=== PATIENT | female | born 1940 | race Caucasian/White ===

== ENCOUNTER 2022-03-29 15:11 | Outpatient (CLI) | payer OTHER, MEDICARE, SELFPAY | END 2022-03-29 15:12 | disposition home or self-care (01) | LOC: AMB 04-08 12:39 | PROVIDERS: PCP Family Medicine; Visit Provider Family Medicine | DX: S79.912A Unspecified injury of left hip, initial encounter (principal); W18.09XA Striking against other object with subsequent fall, initial encounter; Y92.128 Other place in nursing home as the place of occurrence of the external cause | CPT/HCPCS: A0425; A0427 ==

== ENCOUNTER 2022-03-29 15:42 | Inpatient (IN) | payer OTHER, MEDICARE, SELFPAY ==
[2022-03-29] VITALS (9 sets, daily range): BP systolic 125–191; BP diastolic 71–83; PULSE 82–91; RESP 16–20; TEMP 36.6–36.9; O2SAT 94–100; BMI 26.6
--- NOTE | 2022-03-29 15:46 | CRLHL7_ITS ---
For Patients: As a result of the Century Cures Act, medical imaging exams and procedure reports are released immediately into your electronic medical record. You may view this report before your referring provider. If you have questions, please contact your health care provider. Indication: Fall. Technique: Left hip 3 views. Comparison: 12/18/2017. Findings: Acute comminuted and displaced left proximal femur intertrochanteric fracture. Degenerative changes of the hip joints, sacroiliac joints, and lumbosacral junction. Partially imaged posterior lumbar fusion changes. Soft tissue swelling about the left femur fracture. Impression: Acute comminuted and displaced left proximal femur intertrochanteric fracture. Dictated by Francis Trejo MD @ 03/29/2022 5:01:30 PM (Electronically Signed)
--- NOTE | 2022-03-29 15:46 | CRLHL7_ITS ---
For Patients: As a result of the Century Cures Act, medical imaging exams and procedure reports are released immediately into your electronic medical record. You may view this report before your referring provider. If you have questions, please contact your health care provider. INDICATION: Fall. TECHNIQUE: Chest 1 view. COMPARISON: Chest CT 10/31/2018. FINDINGS: Cardiovascular and mediastinum: Heart size and vasculature are normal in caliber and appearance. Lungs and pleural spaces: Grossly unchanged 2.4 cm nodule in the superior segment of the left upper lobe. No consolidation. No pleural effusion or pneumothorax. Bones and soft tissues: Unremarkable for age. No acute findings. IMPRESSION: No evidence of an acute pulmonary process. Dictated by Francis Trejo MD @ 03/29/2022 4:58:09 PM (Electronically Signed)
[2022-03-29] MEDS: 0.9 % SODIUM CHLORIDE 500 ML 500 ML IV (16:00)
[2022-03-29] MEDS: MORPHINE 4 MG/ML INJ IVP ×4 (16:00→19:29)
[2022-03-29 16:05] LABS: Basophils Absolute Auto 0.05 K/uL (0.00-0.30); Basophils Percent Auto 0.5 % (0.0-3.0); Eosinophils Absolute Auto 0.22 K/uL (0.00-0.50); Eosinophils Percent Auto 2.2 % (0.0-7.0); Hematocrit 46.2 % (33.0-51.0); Hemoglobin* 15.1 gm/dL (12.0-16.0); Immature Granulocytes Abs Auto 0.05 K/uL (0.00-0.30); Immature Granulocytes Pct Auto 0.5 %; Lymphocytes Absolute Auto 3.27 K/uL (0.90-2.90); Lymphocytes Percent Auto 32.7 % (20-44); Mean Corpuscular HGB Conc 33 gm/dL (32-36); Mean Corpuscular Hemoglobin 30 pg (26-34); Mean Corpuscular Volume 93 fL (80-100); Monocytes Percent Auto 6.8 % (0.0-11.0); Neutrophils Absolute Auto 5.73 K/uL (1.7-7.0); Neutrophils Percent Auto 57.3 % (42.0-72.0); Platelet Count* 283 K/uL (140-440); RDW Coefficient of Variation % 12.6 % (11.5-15.5); Red Blood Count 4.98 m/uL (4.00-5.20)
[2022-03-29 16:12] LABS: Slide Review Reflex No
[2022-03-29 16:47] LABS: INR 0.98 (0.91-1.10); Prothrombin Time 13.6 Seconds
[2022-03-29 16:48] LABS: Partial Thromboplastin Time* 29 Seconds (23-33)
[2022-03-29 16:52] LABS: Chloride* 104 mmol/L (96-114)
[2022-03-29 16:53] LABS: Albumin* 4.5 g/dL (3.3-5.0); Potassium* 4.1 mmol/L (3.6-5.1); Sodium* 138 mmol/L (135-149)
[2022-03-29 16:55] LABS: Carbon Dioxide* 26 mmol/L (20-32); Creatinine* 0.5 mg/dL (0.5-1.5); Est. Creatinine Clearance* 43.63; Estimated Glomerular Filt Rate 95 ml/min
[2022-03-29 16:56] LABS: Aspartate Amino Transferase* 57 U/L (12-35); Bilirubin Direct* 0.2 mg/dL (0.0-0.5); Bilirubin Total* 0.7 mg/dL (0.1-1.5); Blood Urea Nitrogen* 22 mg/dL (7-30); Calcium* 9.5 mg/dL (8.4-10.6); Glucose* 136 mg/dL (60-115); Total Protein* 7.5 g/dL (6.0-8.3)
[2022-03-29 16:57] LABS: Alanine Aminotransferase* 31 U/L (4-35); Alkaline Phosphatase* 90 U/L (40-150)
[2022-03-29 17:01] LABS: SARS PCR* Negative SARS-CoV-2 (Negative)
--- NOTE | 2022-03-29 17:22 | ED.NURSE ---
report to BASILIA Tillman on MS. Pt can go to [id number]
--- NOTE | 2022-03-29 17:42 | ED_ITS ---
HPI - General Adult General Date Seen: 03/29/22 Chief complaint: Hip Injury/Pain Stated complaint: Fall Time Seen by Provider: 03/29/22 15:46 Source: patient Mode of arrival: EMS Limitations: no limitations History of Present Illness HPI narrative: Patient is an 81-year-old who slipped and fell landing on her left hip. She has pain in the left hip which is severe. She received 100 mcg of nasal fentanyl per EMS as they were not able to establish an IV. Assess helped somewhat with the pain although she still complains of pain in the left hip. She denies hitting her head. She has not have any head or neck pain. Denies any numbness or loss of function in the leg. She has a history of right knee replacement but denies other surgeries. She has a history of hypertension, does not take any blood thinners. General health is good. Does not smoke or drink. Arrives here via EMS. Related Data Home Medications Medication Instructions Recorded Confirmed acetaminophen 500 mg tablet 1,000 mg PO BID 03/29/22 03/29/22 aspirin 81 mg tablet,delayed 81 mg PO HS 03/29/22 03/29/22 release atorvastatin 20 mg tablet 20 mg PO HS 03/29/22 03/29/22 cholecalciferol (vitamin D3) 50 100 mcg PO HS 03/29/22 03/29/22 mcg (2,000 unit) tablet escitalopram oxalate 20 mg tablet 20 mg PO DAILY 03/29/22 03/29/22 losartan 50 mg tablet 50 mg PO HS 03/29/22 03/29/22 multivitamin (Daily Multi-Vitamin 1 tab PO DAILY 03/29/22 03/29/22 tablet) timolol maleate 0.5 % eye drops 1 drp ophthalmic (eye) DAILY 03/29/22 03/29/22 Allergies Allergy/AdvReac Type Severity Reaction Status Date / Time diphenhydramine Allergy Verified 03/29/22 16:03 [From Benadryl] lidocaine Allergy Verified 03/29/22 16:03 metformin Allergy Verified 03/29/22 16:03 ivory soap Allergy Uncoded 03/29/22 16:03 novacaine Allergy Uncoded 03/29/22 16:03 Noxema Allergy Uncoded 03/29/22 16:03 pinneapple Allergy Uncoded 03/29/22 16:03 Review of Systems Status of ROS: Reports: 10 or more systems reviewed and unremarkable except as noted in History and below [facility] Medical History (Updated 03/29/22 @ 18:13 by Rosalino Winston MD) Allergic rhinitis Anxiety Diabetes mellitus Glaucoma Herpes zoster meningitis Hyperlipidemia Hypertension Osteoarthritis Osteopenia Spinal stenosis Stress-induced cardiomyopathy Surgical History (Updated 03/29/22 @ 18:08 by Rosalino Winston MD) History of hysterectomy History of spinal fusion History of total knee arthroplasty History of varicose vein ligation Social History (Updated 03/29/22 @ 18:10 by Rosalino Winston MD) Narrative: Patient is adopted and does not know her family history.. She lives with her . They live in a home now on 1 level without stairs. Two months ago her underwent bone marrow transplant at [facility]. Hospitalized for 6 weeks. He is now out of isolation at home. She does not smoke. She does not drink alcohol. Smoking Status: Never smoker Do you use any of these nicotine containing products: None Second hand tobacco smoke exposure: No How often do you have a drink containing alcohol: never How often do you have six or more drinks on one occasion: Never AUDIT-C Alcohol total score: 0 Non-prescribed substance use: denies use Caffeine: Yes (COFFEE) service: No Exam Narrative: Exam Narrative: Vital signs as noted above. In general, an alert, well-appearing patient. Head: Normocephalic, atraumatic. Eyes: Pupils are equal reactive. Extraocular movements are full. Conjunctivae are normal. ENT: Mucous membranes are moist. Throat is normal. Neck: Supple without lymphadenopathy. Heart: Regular rate and rhythm. No murmur or rub. Lungs: Clear bilaterally. No increased work of breathing, crackles or wheezes. Abdomen: Soft and nontender. No organomegaly. Extremities: Left hip is held slightly flexed. Distal CMS is intact. Other extremities are atraumatic. Neurologic: Patient is alert and oriented to person and place. Speech is fluent. Face is symmetric. Moves all extremities equally. Affect: Normal. Skin: Warm and dry. Well perfused. Const: Vital Signs, click to edit/add: Vital Signs - 24 hr 03/29/22 15:49 03/29/22 16:36 03/29/22 16:45 Temperature 98.1 F Pulse Rate 82 87 Pulse Rate [Pulse Oximeter] 84 Respiratory Rate 20 Blood Pressure [Le ft Upper Arm] 191/83 H Pulse Oximetry 100 96 97 03/29/22 17:00 03/29/22 17:15 03/29/22 17:30 Temperature Pulse Rate 86 87 91 Pulse Rate [Pulse Oximeter] Respiratory Rate Blood Pressure [Le ft Upper Arm] Pulse Oximetry 98 98 98 Documenting provider has reviewed patient's vital signs: yes Course Reevaluation(s) Reevaluation #1: We did establish an IV here and she had morphine 4 mg prior to going for x-rays. X-rays confirm a comminuted and displaced intertrochanteric hip fracture on the left. Final Radiology read is as follows:Impression: Acute comminuted and displaced left proximal femur intertrochanteric fracture. Chest x-ray shows a nodule on the left which per Radiology read is unchanged. Labs show a normal white blood cell count of 10, hemoglobin is 15.1. Coags are pending. Metabolic panel is unremarkable. Blood sugars 136. LFTs are notable only for an AST of 57. COVID is negative. I have talked to Dr. Davison about this patient, plan will be for OR tomorrow for repair. Dr. Winston has seen the patient as well. She did require another couple doses of morphine for pain control. We had briefly discussed a and hip injection for pain control, but she has a listed allergy for lidocaine and Novocain, so for now will just stick with IV pain medications. Vital Signs Vital signs: Initial Vital Signs Temperature 98.1 F 03/29/22 15:49 Temperature Source Temporal Artery Scan 03/29/22 15:49 Pulse Rate 84 03/29/22 15:49 Pulse Rhythm 03/29/22 15:49 Respiratory Rate 20 03/29/22 15:49 Blood Pressure 191/83 H 03/29/22 15:49 Blood Pressure Mean 119 03/29/22 15:49 Blood Pressure Position Right Lateral 03/29/22 15:49 Pulse Oximetry 100 03/29/22 15:49 Vital Signs Temperature 98.1 F 03/29/22 15:49 Pulse Rate 84 03/29/22 15:49 Respiratory Rate 20 03/29/22 15:49 Blood Pressure 191/83 H 03/29/22 15:49 Pulse Oximetry 100 03/29/22 15:49 Temperature 98.3 F 03/29/22 18:10 Pulse Rate 91 03/29/22 17:30 Respiratory Rate 20 03/29/22 18:10 Blood Pressure 147/74 H 03/29/22 18:10 Pulse Oximetry 98 03/29/22 18:10 Oxygen Delivery Method 03/29/22 18:10 Medical Decision Making Lab Data Labs: Lab Results 03/29/22 03/29/22 03/29/22 Range/Units 15:47 15:54 15:54 WBC 10.00 (4.50-11.00) K/uL RBC 4.98 (4.00-5.20) m/uL Hgb 15.1 (12.0-16.0) gm/dL Hct 46.2 (33.0-51.0) % MCV 93 (80-100) fL MCH 30 (26-34) pg MCHC 33 (32-36) gm/dL RDW Coeff of Andrew 12.6 (11.5-15.5) % Plt Count 283 (140-440) K/uL Neut % (Auto) 57.3 (42.0-72.0) % Lymph % (Auto) 32.7 (20-44) % Charlton % (Auto) 6.8 (0.0-11.0) % Eos % (Auto) 2.2 (0.0-7.0) % Baso % (Auto) 0.5 (0.0-3.0) % Neut # (Auto) 5.73 (1.7-7.0) K/uL Lymph # (Auto) 3.27 H (0.90-2.90) K/uL Charlton # (Auto) 0.70 (0.00-0.90) K/UL Eos # (Auto) 0.22 (0.00-0.50) K/uL Baso # (Auto) 0.05 (0.00-0.30) K/uL INR (0.91-1.10) APTT (23-33) Seconds Sodium 138 (135-149) mmol/L Potassium 4.1 (3.6-5.1) mmol/L Chloride 104 (96-114) mmol/L Carbon Dioxide 26 (20-32) mmol/L BUN 22 (7-30) mg/dL Creatinine 0.5 (0.5-1.5) mg/dL Estimated Creat Clear 43.63 Estimated GFR 95 ml/min Glucose 136 H (60-115) mg/dL Calcium 9.5 (8.4-10.6) mg/dL Total Bilirubin (0.1-1.5) mg/dL Direct Bilirubin (0.0-0.5) mg/dL AST (12-35) U/L ALT (4-35) U/L Alkaline Phosphatase (40-150) U/L Total Protein (6.0-8.3) g/dL Albumin (3.3-5.0) g/dL SARS-CoV-2 (PCR) Negative SARS-CoV-2 (Negative) 03/29/22 03/29/22 Range/Units 15:54 15:54 WBC (4.50-11.00) K/uL RBC (4.00-5.20) m/uL Hgb (12.0-16.0) gm/dL Hct (33.0-51.0) % MCV (80-100) fL MCH (26-34) pg MCHC (32-36) gm/dL RDW Coeff of Andrew (11.5-15.5) % Plt Count (140-440) K/uL Neut % (Auto) (42.0-72.0) % Lymph % (Auto) (20-44) % Charlton % (Auto) (0.0-11.0) % Eos % (Auto) (0.0-7.0) % Baso % (Auto) (0.0-3.0) % Neut # (Auto) (1.7-7.0) K/uL Lymph # (Auto) (0.90-2.90) K/uL Charlton # (Auto) (0.00-0.90) K/UL Eos # (Auto) (0.00-0.50) K/uL Baso # (Auto) (0.00-0.30) K/uL INR 0.98 (0.91-1.10) APTT 29 (23-33) Seconds Sodium (135-149) mmol/L Potassium (3.6-5.1) mmol/L Chloride (96-114) mmol/L Carbon Dioxide (20-32) mmol/L BUN (7-30) mg/dL Creatinine (0.5-1.5) mg/dL Estimated Creat Clear Estimated GFR ml/min Glucose (60-115) mg/dL Calcium (8.4-10.6) mg/dL Total Bilirubin 0.7 (0.1-1.5) mg/dL Direct Bilirubin 0.2 (0.0-0.5) mg/dL AST 57 H (12-35) U/L ALT 31 (4-35) U/L Alkaline Phosphatase 90 (40-150) U/L Total Protein 7.5 (6.0-8.3) g/dL Albumin 4.5 (3.3-5.0) g/dL SARS-CoV-2 (PCR) (Negative) Discharge Plan Discharge Clinical Impression: Closed fracture of left hip Patient Disposition: Admitted As Inpatient Condition: Stable
--- NOTE | 2022-03-29 17:56 | P.IMHP_ITS ---
Hospitalist- H&P: HPI History of Present Illness Date Seen: 03/29/22 Chief complaint: Fall Narrative: Lynette Webster is a 81 year old female admitted to the hospital after a fall and hip injury at work today. 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 She was sitting in her chair. As she stood to get up she thinks her foot might have caught the chair as she fell right down. She wonders if her hip broke before she fell. She immediately had left hip pain and was unable to move. S ubsequently found to have a displaced intertrochanteric hip fracture. She reports no other injuries. No recent illness. She has otherwise been feeling fine. She has had no problems in the past with anesthesia, bleeding or clotting. She does note that she is very slow to come out of anesthesia and thinks she might need a lower dose of sedation. She had elective knee replacement in October 2018. This was uncomplicated until after she was discharged from the hospital she had intractable nausea and vomiting. This was thought possibly due to oxycodone and/or hydrocodone used for postoperative pain. She was treated with tramadol, Celebrex, Zofran and was able to manage on this at home. Review of Systems Narrative: Patient reports that she has been doing well until this fall today. No recent illness or other injury. [facility] Medical History (Updated 03/29/22 @ 18:13 by Rosalino Winston MD) Allergic rhinitis Anxiety Diabetes mellitus Glaucoma Herpes zoster meningitis Hyperlipidemia Hypertension Osteoarthritis Osteopenia Spinal stenosis Stress-induced cardiomyopathy Surgical History (Updated 03/29/22 @ 18:08 by Rosalino Winston MD) History of hysterectomy History of spinal fusion History of total knee arthroplasty History of varicose vein ligation Social History (Updated 03/29/22 @ 18:10 by Rosalino Winston MD) Narrative: Patient is adopted and does not know her family history.. She lives with her . They live in a home now on 1 level without stairs. Two months ago her underwent bone marrow transplant at [facility]. Hospitalized for 6 weeks. He is now out of isolation at home. She does not smoke. She does not drink alcohol. Smoking Status: Never smoker Do you use any of these nicotine containing products: None Second hand tobacco smoke exposure: No How often do you have a drink containing alcohol: never How often do you have six or more drinks on one occasion: Never AUDIT-C Alcohol total score: 0 Non-prescribed substance use: denies use service: No Meds Home Medications and Allergies Home Medications Medication Instructions Recorded Confirmed Type acetaminophen 500 mg tablet 1,000 mg PO BID 03/29/22 03/29/22 History aspirin 81 mg tablet,delayed 81 mg PO HS 03/29/22 03/29/22 History release atorvastatin 20 mg tablet 20 mg PO HS 03/29/22 03/29/22 History cholecalciferol (vitamin D3) 50 100 mcg PO HS 03/29/22 03/29/22 History mcg (2,000 unit) tablet escitalopram oxalate 20 mg tablet 20 mg PO DAILY 03/29/22 03/29/22 History losartan 50 mg tablet 50 mg PO HS 03/29/22 03/29/22 History multivitamin (Daily Multi-Vitamin 1 tab PO DAILY 03/29/22 03/29/22 History tablet) timolol maleate 0.5 % eye drops 1 drp ophthalmic (eye) DAILY 03/29/22 03/29/22 History Allergies Allergy/AdvReac Type Severity Reaction Status Date / Time diphenhydramine Allergy Verified 03/29/22 16:03 [From Benadryl] lidocaine Allergy Verified 03/29/22 16:03 metformin Allergy Verified 03/29/22 16:03 ivory soap Allergy Uncoded 03/29/22 16:03 novacaine Allergy Uncoded 03/29/22 16:03 Noxema Allergy Uncoded 03/29/22 16:03 pinneapple Allergy Uncoded 03/29/22 16:03 Exam Narrative: Exam Narrative: She is alert and appears in moderate amount of pain. Head is normal. Eyes normal. Pupils are small. Extraocular movements are full. Visual escobar intact. No facial asymmetry. Oropharynx is normal. Dry mucous membranes. Neck is supple without mass or adenopathy. Respirations are clear to auscultation. Good air exchange all lung escobar. Cardiovascular: S1, S2, regular rate and rhythm. No murmur gallop or rub. Abdomen: Bowel sounds active. Abdomen is soft without tenderness or mass. Left lower extremity with apparent deformity at the hip with moderate swelling and angulation/adduction and internal rotation and shortening. Intact pulses and sensation in the left lower extremity. She moves her foot and toes on her left lower extremity. Right lower extremity is normal in examination of pulses, sensation and motion. Const: Vital Signs, click to edit/add: Vital Signs - 24 hr 03/29/22 15:49 03/29/22 16:36 03/29/22 16:45 Temperature 98.1 F Pulse Rate 82 87 Pulse Rate [Pulse Oximeter] 84 Respiratory Rate 20 Blood Pressure [Le ft Upper Arm] 191/83 H Pulse Oximetry 100 96 97 03/29/22 17:00 03/29/22 17:15 03/29/22 17:30 Temperature Pulse Rate 86 87 91 Pulse Rate [Pulse Oximeter] Respiratory Rate Blood Pressure [Le ft Upper Arm] Pulse Oximetry 98 98 98 Documenting provider has reviewed patient's vital signs: yes Hospitalist - H&P: Result Labs Labs: Short CBC 03/29/22 Range/Units 15:54 WBC 10.00 (4.50-11.00) K/uL Hgb 15.1 (12.0-16.0) gm/dL Hct 46.2 (33.0-51.0) % Plt Count 283 (140-440) K/uL BMP 03/29/22 15:54 Sodium 138 Potassium 4.1 Chloride 104 Carbon Dioxide 26 BUN 22 Creatinine 0.5 Glucose 136 H Calcium 9.5 Liver Function 03/29/22 Range/Units 15:54 Total Bilirubin 0.7 (0.1-1.5) mg/dL Direct Bilirubin 0.2 (0.0-0.5) mg/dL AST 57 H (12-35) U/L ALT 31 (4-35) U/L Alkaline Phosphatase 90 (40-150) U/L Albumin 4.5 (3.3-5.0) g/dL Assessment and Plan Assessment and plan (1) Closed fracture of left hip: Problem comment: Displaced, comminuted, left intertrochanteric femur fracture. Planned surgery for tomorrow Status: Acute (2) Diabetes mellitus: Problem comment: Diet-controlled Status: Acute (3) Hypertension: Status: Acute Plan Admit to the hospital for pain management, IV fluids pending surgery tomorrow. At this point no further perioperative evaluation is warranted. Anticipate postoperative issues with mobility, pain control and side effects from opioid pain medicines. Will need to assess whether patient can return home with her or will need rehab stay. He is recently out of the hospital after a 6 week hospitalization with bone marrow transplant and may not be able to be a caregiver for her. Total time spent today is 75 minutes, 40 minutes in coordination of care discussing with patient, and other providers ongoing evaluation management of hip fracture and recovery
[2022-03-29] MEDS: LACTATED RINGERS 1000 ML 1,000 ML 125 ML IV (18:09)
[2022-03-29] MEDS: ONDANSETRON 2 MG/ML inj 4 MG IVP (18:09)
--- NOTE | 2022-03-29 19:19 | PC.NURSE ---
admission note: Pt to m/s floor at 1800 for left hip fx. A&O pleasant and cooperative. VSS on RA. Pt initially nauseated, no emesis, PRN Zofran given with relief. Fry patent and draining. Pt will be NPO at midnight for plan to have sx in AM at 1000.
[2022-03-29] MEDS: SODIUM CHLORIDE 0.9 % (FLUSH) 10 ML SYRINGE 5 ML IVF (19:30)
[2022-03-29] MEDS: PROCHLORPERAZINE 5 MG/ML VIAL 10 MG IV (20:19)
[2022-03-29] MEDS: ACETAMINOPHEN 500 MG TABLET 1000 MG PO (21:03)
[2022-03-29] MEDS: ATORVASTATIN 10 MG TABLET 20 MG PO (21:03)
[2022-03-30] VITALS (23 sets, daily range): BP systolic 92–160; BP diastolic 39–90; PULSE 72–90; RESP 16–18; TEMP 35.9–36.6; O2SAT 90–100
[2022-03-30] MEDS: HYDROmorphone 0.5 mg/0.5 ml inj 1 MG IVP ×2 (00:47→07:31)
[2022-03-30] MEDS: LACTATED RINGERS 1000 ML 1,000 ML 125 ML IV (02:00)
--- NOTE | 2022-03-30 06:05 | PC.NURSE ---
[id number]: Patient pleasant and cooperative. A&Ox3. Rates pain 5-8-10. PRN Morphine changed to Dilaudid d/t N/V. Active ice to L. hip. Maintained bedrest during noc. Fry patent with 100mL out. Du updated, no new orders. NPO after midnight.
[2022-03-30 06:25] LABS: Basophils Absolute Auto 0.02 K/uL (0.00-0.30); Basophils Percent Auto 0.2 % (0.0-3.0); Hematocrit 38.3 % (33.0-51.0); Hemoglobin* 12.4 gm/dL (12.0-16.0); Immature Granulocytes Abs Auto 0.02 K/uL (0.00-0.30); Immature Granulocytes Pct Auto 0.2 %; Lymphocytes Percent Auto 17.2 % (20-44); Mean Corpuscular HGB Conc 32 gm/dL (32-36); Mean Corpuscular Hemoglobin 31 pg (26-34); Mean Corpuscular Volume 95 fL (80-100); Monocytes Percent Auto 9.7 % (0.0-11.0); Neutrophils Percent Auto 72.7 % (42.0-72.0); Platelet Count* 224 K/uL (140-440); RDW Coefficient of Variation % 12.9 % (11.5-15.5); Red Blood Count 4.04 m/uL (4.00-5.20); White Blood Count* 10.17 K/uL (4.50-11.00)
[2022-03-30 06:26] LABS: Slide Review Reflex No
[2022-03-30] MEDS: LACTATED RINGERS 1000 ML 500 ML IV ×2 (08:09→09:16)
[2022-03-30] MEDS: timoloL maleate 0.5 % 1 DROP EYE-BOTH (08:48)
[2022-03-30] MEDS: ACETAMINOPHEN 500 MG TABLET 1000 MG PO ×2 (08:49→20:38)
[2022-03-30] MEDS: SODIUM CHLORIDE 0.9 % (FLUSH) 10 ML SYRINGE 5 ML IVF (08:49)
[2022-03-30] MEDS: MULTIVITAMIN/MINERALS 1 TABLET 1 TAB PO (08:49)
[2022-03-30] MEDS: ESCITALOPRAM 10 MG TABLET 20 MG PO (08:49)
--- NOTE | 2022-03-30 09:19 | CRLHL7_ITS ---
For Patients: As a result of the Cures Act, medical imaging exams and procedure reports are released immediately into your electronic medical record. You may view this report before your referring provider. If you have questions, please contact your health care provider. Indication: LEFT FEMUR RODDING Technique: Four fluoroscopic images of the left femur. Fluoroscopic time 1 minute 11.3 seconds. IMPRESSION: Fluoroscopic guidance for open reduction internal fixation of proximal left femoral fracture. Dictated by Doyle Hannah MD @ 04/01/2022 9:40:31 AM (Electronically Signed)
[2022-03-30] MEDS: CEFAZOLIN 2 GM in 0.9 % SODIUM CHLORIDE Mini-bag 100 ML IVPB (10:30)
--- NOTE | 2022-03-30 10:39 | P.ORCN_ITS ---
History of Present Illness HPI Date Seen: 03/30/22 Chief complaint: Fall Narrative: Lynette is a pleasant 81 year old female admitted to [facility] 03/29/2022 after a fall from a standing height at work on the same day.? 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 As she stood from her chair, she believes her foot might have caught the chair causing her to fall onto her left hip area.?She immediately had left hip pain and was unable to move.? She presented [facility]. X-rays were obtained revealed a displaced intertrochanteric hip fracture.? She reports no other injuries.? No recent illness.? She has otherwise been feeling fine. She has had no problems in the past with anesthesia, bleeding or clotting.? 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 This was uncomplicated until after she was discharged from the hospital she had intractable nausea and vomiting.? This was thought possibly due to oxycodone and/or hydrocodone used for postoperative pain.? She was treated with tramadol, Celebrex, Zofran and was able to manage on this at home. Review of Systems Narrative: No recent fevers or chills, nausea vomiting, constipation. Denies easy bleeding or bruising or clotting disorders in herself or family members. Denies chest pain or shortness of breath. Denies blurry vision double vision or headaches. She does were glasses to help with vision. She previously worked at [employer] with Smita De Souza. [facility] Medical History Allergic rhinitis Anxiety Diabetes mellitus Glaucoma Herpes zoster meningitis Hyperlipidemia Hypertension Osteoarthritis Osteopenia Spinal stenosis Stress-induced cardiomyopathy Surgical History History of hysterectomy History of spinal fusion History of total knee arthroplasty History of varicose vein ligation Social History Narrative: Patient is adopted and does not know her family history.. She lives with her . They live in a home now on 1 level without stairs. Two months ago her underwent bone marrow transplant at [facility]. Hospitalized for 6 weeks. He is now out of isolation at home. She does not smoke. She does not drink alcohol. Smoking Status: Never smoker Do you use any of these nicotine containing products: None Second hand tobacco smoke exposure: No How often do you have a drink containing alcohol: never How often do you have six or more drinks on one occasion: Never AUDIT-C Alcohol total score: 0 Non-prescribed substance use: denies use Caffeine: Yes (COFFEE) service: No Meds Home Medications and Allergies Home Medications Medication Instructions Recorded Confirmed Type acetaminophen 500 mg tablet 1,000 mg PO BID 03/29/22 03/29/22 History aspirin 81 mg tablet,delayed 81 mg PO HS 03/29/22 03/29/22 History release atorvastatin 20 mg tablet 20 mg PO HS 03/29/22 03/29/22 History cholecalciferol (vitamin D3) 50 100 mcg PO HS 03/29/22 03/29/22 History mcg (2,000 unit) tablet escitalopram oxalate 20 mg tablet 20 mg PO DAILY 03/29/22 03/29/22 History losartan 50 mg tablet 50 mg PO HS 03/29/22 03/29/22 History multivitamin (Daily Multi-Vitamin 1 tab PO DAILY 03/29/22 03/29/22 History tablet) timolol maleate 0.5 % eye drops 1 drp ophthalmic (eye) DAILY 03/29/22 03/29/22 History Allergies Allergy/AdvReac Type Severity Reaction Status Date / Time latex Allergy Mild Rash Verified 03/30/22 09:11 diphenhydramine Allergy Verified 03/29/22 16:03 [From Benadryl] lidocaine Allergy Verified 03/29/22 16:03 metformin Allergy Verified 03/29/22 16:03 ivory soap Allergy Uncoded 03/29/22 16:03 novacaine Allergy Uncoded 03/29/22 16:03 Noxema Allergy Uncoded 03/29/22 16:03 pinneapple Allergy Uncoded 03/29/22 16:03 Ortho Exam Narrative Exam Narrative: She is alert and oriented. Resting in her bed this morning upon my interview. She provides all of the history. She is coherent and lucid. She is in no respiratory distress. No acute distress. Memory intact both remote and recent events regarding today's presenting complaint. Left hip exam shows generalized swelling about the left hip. No lacerations or abrasions or ecchymosis noted. Tender palpation on the left hip as well as with rotation. Neurologic intact in the superficial and deep peroneal as well as plantar dist ribution to sensory light touch and motor function. Palpable DP and PT pulse. Const Vital Signs, click to edit/add: Vital Signs - 24 hr 03/29/22 15:49 03/29/22 16:36 03/29/22 16:45 Temperature 98.1 F Pulse Rate 82 87 Pulse Rate [Left Pulse Oximeter] Pulse Rate [Pulse Oximeter] 84 Respiratory Rate 20 Blood Pressure [Left Arm] Blood Pressure [Left Upper Arm] 191/83 H Pulse Oximetry 100 96 97 Oxygen Delivery Method 03/29/22 17:00 03/29/22 17:15 03/29/22 17:30 Temperature Pulse Rate 86 87 91 Pulse Rate [Left Pulse Oximeter] Pulse Rate [Pulse Oximeter] Respiratory Rate Blood Pressure [Left Arm] Blood Pressure [Left Upper Arm] Pulse Oximetry 98 98 98 Oxygen Delivery Method 03/29/22 18:10 03/29/22 18:10 03/29/22 19:34 Temperature 98.3 F 98.4 F Pulse Rate Pulse Rate [Left Pulse Oximeter] 83 Pulse Rate [Pulse Oximeter] Respiratory Rate 20 20 18 Blood Pressure [Left Arm] 147/74 H 146/75 H Blood Pressure [Left Upper Arm] Pulse Oximetry 97 98 97 Oxygen Delivery Method Room Air Room Air 03/29/22 22:04 03/30/22 01:59 03/30/22 07:00 Temperature 97.8 F 97.8 F Pulse Rate Pulse Rate [Left Pulse Oximeter] 88 90 89 Pulse Rate [Pulse Oximeter] Respiratory Rate 16 16 16 Blood Pressure [Left Arm] 125/71 121/51 L Blood Pressure [Left Upper Arm] Pulse Oximetry 94 90 Oxygen Delivery Method Room Air Room Air 03/30/22 07:00 Temperature 97.8 F Pulse Rate Pulse Rate [Left Pulse Oximeter] 89 Pulse Rate [Pulse Oximeter] Respiratory Rate 16 Blood Pressure [Left Arm] 121/55 L Blood Pressure [Left Upper Arm] Pulse Oximetry 96 Oxygen Delivery Method Room Air Results Labs Labs: Laboratory Results - last 48 hr 03/29/22 03/29/22 03/29/22 15:47 15:54 15:54 WBC 10.00 RBC 4.98 Hgb 15.1 Hct 46.2 MCV 93 MCH 30 MCHC 33 RDW Coeff of Andrew 12.6 Plt Count 283 Neut % (Auto) 57.3 Lymph % (Auto) 32.7 [place] % (Auto) 6.8 Eos % (Auto) 2.2 Baso % (Auto) 0.5 Neut # (Auto) 5.73 Lymph # (Auto) 3.27 H [place] # (Auto) 0.70 Eos # (Auto) 0.22 Baso # (Auto) 0.05 INR APTT Sodium 138 Potassium 4.1 Chloride 104 Carbon Dioxide 26 BUN 22 Creatinine 0.5 Estimated Creat Clear 43.63 Estimated GFR 95 Glucose 136 H Calcium 9.5 Total Bilirubin Direct Bilirubin AST ALT Alkaline Phosphatase Total Protein Albumin SARS-CoV-2 (PCR) Negative SARS-CoV-2 03/29/22 03/29/22 03/30/22 15:54 15:54 05:53 WBC 10.17 RBC 4.04 Hgb 12.4 Hct 38.3 MCV 95 MCH 31 MCHC 32 RDW Coeff of Andrew 12.9 Plt Count 224 Neut % (Auto) 72.7 H Lymph % (Auto) 17.2 L [place] % (Auto) 9.7 Eos % (Auto) 0.0 Baso % (Auto) 0.2 Neut # (Auto) 7.40 H Lymph # (Auto) 1.70 [place] # (Auto) 1.00 H Eos # (Auto) 0.00 Baso # (Auto) 0.02 INR 0.98 APTT 29 Sodium Potassium Chloride Carbon Dioxide BUN Creatinine Estimated Creat Clear Estimated GFR Glucose Calcium Total Bilirubin 0.7 Direct Bilirubin 0.2 AST 57 H ALT 31 Alkaline Phosphatase 90 Total Protein 7.5 Albumin 4.5 SARS-CoV-2 (PCR) Diagnostic results Additional Comments: AP pelvis and AP and cross-table lateral views of the left hip from [facility] dated 03/29/2022 were ordered by different provider and reviewed by me. This demonstrates a left intertrochanteric/subtrochanteric comminuted femur fracture with shortening, varus angulation, and external rotation to the distal portion. Also visualized appears to be spinal hardware extending at least from L4-L5 and possibly further cephalad but not fully visualized. No apparent issues regarding the right hip. Assessment and Plan Assessment and plan (1) Closed fracture of left hip: Problem comment: Displaced, comminuted, left intertrochanteric femur fracture. Planned surgery for tomorrow Status: Acute Total time spent: Total time spent is greater than 50% in coordination of care (as documented) at patient's floor/unit and/or counseling patient: (2) Diabetes mellitus: Problem comment: Diet-controlled Status: Acute Total time spent: Total time spent is greater than 50% in coordination of care (as documented) at patient's floor/unit and/or counseling patient: (3) Hypertension: Status: Acute Total time spent: Total time spent is greater than 50% in coordination of care (as documented) at patient's floor/unit and/or counseling patient: Plan Had a good discussion today with the patient regarding her situation. I help her understand the pros and cons of both nonoperative and operative intervention. At this time, I do think surgery is indicated. This be for left femur intramedullary nail/cephalomedullary nail. This will help stabilize the fracture and allow her to mobilize much sooner than the nonoperative route. We did discuss the risks of both the nonoperative and operative route in detail. Following surgery, I would anticipate she would be able to bear weight on the left lower extremity. 23 hours of perioperative antibiotics. Xarelto for DVT prophylaxis anticipated. Given her significant nausea a issue following the right TKA from 2019, we will plan to use hydromorphone both orally and through intravenous methods as needed. Thank you for allowing me to participate in the care this patient today.
--- NOTE | 2022-03-30 13:18 | P.ORPRC_ITS ---
Procedure Note Date of procedure: 03/30/22 Procedure: PREOPERATIVE DIAGNOSES: 1. Left femur intertrochanteric/subtrochanteric fracture, closed, acute, comminuted POSTOPERATIVE DIAGNOSES: 1. Left femur intertrochanteric/subtrochanteric fracture, closed, acute, comminuted NAME OF OPERATION: 1. Left femur intertrochanteric/subtrochanteric fracture fixation with intramedullary nail 2. 26072 - intraoperative fluoroscopy up to 1 hour. SURGEON: Raoul De Souza MD SHOES HAND SEWER: Miguelangel Ayala PA-C. Of note, an judicial assistant was critical for this case to aide in patient positioning, extremity positioning, tissue retraction, instrument manipulation, and closure. ANESTHESIA: Spinal EBL: 300 ml IMPLANTS: Synthes long TFN 12 mm x 380 mm with 95 mm lag screw and 2 distal 5.0 mm interlocking screws] COMPLICATIONS: None evident INDICATIONS: The patient is a pleasant, 81-year-old female who unfortunately sustained a recent fall. They landed on their left hip and were unable to bear weight. They experienced significant pain which prompted a visit to [facility]. X-rays were obtained and revealed a proximal femur fracture on the left consistent with a pertrochanteric (i.e. intertrochanteric / subtrochanteric) femur fracture. Given these findings, along with the desire to help with pain control and improved mobility / mobilization, surgery was recommended. FINDINGS: Intertrochanteric/subtrochanteric left femur fracture with displacement, shortening, comminution, and varus angulation.] PROCEDURE: Following a thorough discussion of risks, benefits, and alternatives, consent was obtained and the left hip was marked. After obtaining proper medical evaluation determining the patient was optimized prior to surgery, they were brought to the operating room and placed supine on the operating table. Induction of anesthesia undertaken. 1 g IV Ancef was ad ministered within 1 hr of incision preoperatively. Proper time-out was performed identifying proper patient, site, and procedure. The operative extremity was prepped & draped in the appropriate sterile fashion using ChloraPrep after the patient was positioned on the [place] table with the head in neutral alignment all bone prominences well padded. C-arm fluoroscopic imaging was utilized to obtain AP and lateral views of the operative hip. This indeed confirm the location of fracture and the comminution. We elected to open up the subtrochanteric fracture extension, and apply a cerclage super cable to stabilize and reduce this fragment. Thus, after exposing the femur through a subvastus approach, the cable was passed, tightened, and held after clamping the fracture fragment with the reduction clamp. Excellent securing of this subtrochanteric extension was achieved. We then proceeded to the cephalomedullary nail placement. 10 blade skin incision was made proximal to the greater trochanteric tip. Sharp incision through skin and gluteal fascia allowed palpation of the greater trochanteric tip. A sharp awl was utilized and placed against the greater trochanteric tip. This was confirmed on C-arm and both in AP and lateral planes to be in appropriate starting position. Aiming down the canal. Once breaching the cortex, the ball-tip guidewire was passed the length of the femur. Once confirming via palpable scrape and visual C-Arm imagining that the guide wire with intraosseous, the depth gauge was used. The proper nail length was selected. The opening / proximal reamer was used followed by diaphyseal reamers up to 13.5mm. The IMN was then opened and inserted and passed the length of the canal without difficulty. The triple trocar was then applied to the lateral femur, 10 blade incision through the skin and ITB band along the trocars allowed them to be advanced to the lateral cortex. This was confirmed fluoroscopically to be in appropriate position. The guide pin was then placed and confirmed on AP and lateral views with the goal of center center position. The length was measured as noted above and the reamer used followed by screw application. Reduction of the fracture was monitored during insertion. The proximal nail locking screw was tightened down, and left static as the fracture pattern was felt to be unstable. At this stage, C-arm confirmed proper screw/lag screw position. We then turned our attention to the distal interlocking screws. Perfect curyung technique was utilized, and the 10 blade skin incision allowed the drill bit to be placed, and confirmed on C-arm fluoroscopic imaging to be within the oblong hole. This was measured and the screw placed with good security of the screw. A 2nd screw was placed in 1 of the other adjacent holes in a similar fashion. Again C-arm images were obtained to confirm position within the nail and the nail to be within the bone. At this stage, the wounds were thoroughly irrigated normal saline; closure was performed with #0 Vicryl for the deep gluteal fascia, and IT band. 2-0 Vicryl and 4-0 Monocryl was utilized for subcutaneous and subcuticular closure, respectively. The patient was awoken from anesthesia and transferred to the PACU in stable condition. PLAN: 1. Weight bear as tolerated operative lower extremity. 2. Encouraged ice. 3. Hydromorphone for pain as needed. 4. Anticipate the need for long term facility transfer once medically stabilized 5. 23 hr perioperative antibiotics. 6. Xarelto for DVT prophylaxis along with Mohinder bourgeois and Julia.
[2022-03-30] MEDS: fentaNYL 100 MCG/2 ML inj 50 MCG IVP (13:43)
--- NOTE | 2022-03-30 13:52 | P.ANES_ITS ---
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
--- NOTE | 2022-03-30 13:52 | W.ANESCHARGE ---
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
--- NOTE | 2022-03-30 13:54 | P.NB_ITS ---
Nerve Block Nerve Block Time Seen by Provider: 10:10 Date Seen: 03/30/22 Type of block requested by surgeon for post-operative analgesia: KRISTEN/LFCN Side: left Time out performed: Yes Verification of patient name: Yes Verification of date of : Yes Site marking: site marked Name of person performing procedure: Giuliana Mitchell CRNA Continuous monitoring Was continuous monitoring of O2 sat, B/P, phototypesetting equipment monitor, recorded every 15 minutes?: Yes Procedure Checklist: sterile prep, needles and gloves Ultrasound guided. Images saved: Yes Medications given in 5ml increments after negative aspiration: Ropivicaine (25 total) %: 0.5 Needle gauge: 20 Decadron (mg): 10 Precedex (mcg): 20 Patient tolerated procedure well: Yes Block Charges Block Charge (with Pro Fee): Other Periph Nerve Block Use of Ultrasound Machine for Block: Yes- US Guidance/pain block
[2022-03-30] MEDS: LACTATED RINGERS 1000 ML 1,000 ML 75 ML IV (14:36)
[2022-03-30] MEDS: HYDROmorphone 0.5 mg/0.5 ml inj IVP (14:46)
--- NOTE | 2022-03-30 14:57 | PM.IMPN1 ---
Progress Note: A&P Assessment and plan (1) Closed fracture of left hip: Problem details: Displaced, comminuted, left intertrochanteric femur fracture. Successful surgery today. Initiate postoperative pain management and therapy. Hydromorphone for pain. Status: Acute (2) Hypertension: Problem details: Restarted normal blood pressure medicines as needed Status: Acute (3) Intolerance of drug: Problem details: Patient has history of intolerance to oxycodone and hydrocodone. Use hydromorphone for postoperative pain. Alternative would be tramadol. Status: Acute Plan Continue in-hospital care for management of pain and side effects of pain medicines, cardia respiratory monitoring as she recovers from anesthesia, rehab and managing chronic medical problems Time Spent With Patient Total time spent: Total time spent today is 40 minutes, 30 minutes in coordination of care and discussing with patient and other providers management postoperative complications Subjective Date Seen: 03/30/22 Interval history: 81-year-old female seen in followup of left intertrochanteric femur fracture. She was seen before surgery this morning. She did fairly well overnight but had poor urine output and blood pressure was relatively low. She received another bolus of normal saline. There were no intraoperative problems with anesthesia and no intraoperative complications. Postoperatively she is somewhat sedated but otherwise doing well. Exam Narrative: Exam Narrative: She is oriented to her circumstances. Respirations are clear to auscultation. Cardiovascular: S1, S2, regular rate and rhythm. No murmur gallop or rub. Abdomen is soft without tenderness or mass. Left hip has prominent swelling consistent with probable hematoma with her displaced fracture. Distally she has intact pulses sensation and motion in her feet Const: Vital Signs, click to edit/add: Vital Signs - 24 hr 03/29/22 15:49 03/29/22 16:36 03/29/22 16:45 Temperature 98.1 F Pulse Rate 82 87 Pulse Rate [Left P ulse Oximeter] Pulse Rate [Pulse Oximeter] 84 Respiratory Rate 20 Blood Pressure Blood Pressure [Le ft Arm] Blood Pressure [Le ft Upper Arm] 191/83 H Pulse Oximetry 100 96 97 Oxygen Delivery Me thod Oxygen Flow Rate 03/29/22 17:00 03/29/22 17:15 03/29/22 17:30 Temperature Pulse Rate 86 87 91 Pulse Rate [Left P ulse Oximeter] Pulse Rate [Pulse Oximeter] Respiratory Rate Blood Pressure Blood Pressure [Le ft Arm] Blood Pressure [Le ft Upper Arm] Pulse Oximetry 98 98 98 Oxygen Delivery Me thod Oxygen Flow Rate 03/29/22 18:10 03/29/22 18:10 03/29/22 19:34 Temperature 98.3 F 98.4 F Pulse Rate Pulse Rate [Left P ulse Oximeter] 83 Pulse Rate [Pulse Oximeter] Respiratory Rate 20 20 18 Blood Pressure Blood Pressure [Le ft Arm] 147/74 H 146/75 H Blood Pressure [Le ft Upper Arm] Pulse Oximetry 97 98 97 Oxygen Delivery Me thod Room Air Room Air Oxygen Flow Rate 03/29/22 22:04 03/30/22 01:59 03/30/22 07:00 Temperature 97.8 F 97.8 F Pulse Rate Pulse Rate [Left P ulse Oximeter] 88 90 89 Pulse Rate [Pulse Oximeter] Respiratory Rate 16 16 16 Blood Pressure Blood Pressure [Le ft Arm] 125/71 121/51 L Blood Pressure [Le ft Upper Arm] Pulse Oximetry 94 90 Oxygen Delivery Me od Room Air Room Air Oxygen Flow Rate 03/30/22 07:00 03/30/22 13:32 03/30/22 13:37 Temperature 97.8 F 97.6 F Pulse Rate 78 75 Pulse Rate [Left P ulse Oximeter] 89 Pulse Rate [Pulse Oximeter] Respiratory Rate 16 16 16 Blood Pressure 142/67 H 151/70 H Blood Pressure [Le ft Arm] 121/55 L Blood Pressure [Le ft Upper Arm] Pulse Oximetry 96 97 100 Oxygen Delivery Me thod Room Air OxyMask OxyMask Oxygen Flow Rate 8 8 03/30/22 13:42 03/30/22 13:47 03/30/22 13:52 Temperature Pulse Rate 75 84 79 Pulse Rate [Left P ulse Oximeter] Pulse Rate [Pulse Oximeter] Respiratory Rate 16 16 16 Blood Pressure 152/65 H 160/72 H 149/61 H Blood Pressure [Le ft Arm] Blood Pressure [Le ft Upper Arm] Pulse Oximetry 100 98 98 Oxygen Delivery Me thod OxyMask OxyMask OxyMask Oxygen Flow Rate 4 2 2 03/30/22 13:57 03/30/22 14:02 03/30/22 14:07 Temperature Pulse Rate 79 77 72 Pulse Rate [Left P ulse Oximeter] Pulse Rate [Pulse Oximeter] Respiratory Rate 16 16 16 Blood Pressure 149/61 H 149/75 H 145/58 H Blood Pressure [Le ft Arm] Blood Pressure [Le ft Upper Arm] Pulse Oximetry 97 96 96 Oxygen Delivery Me thod OxyMask OxyMask OxyMask Oxygen Flow Rate 2 2 2 03/30/22 14:12 Temperature 97.5 F L Pulse Rate 78 Pulse Rate [Left P ulse Oximeter] Pulse Rate [Pulse Oximeter] Respiratory Rate 16 Blood Pressure 137/62 Blood Pressure [Le ft Arm] Blood Pressure [Le ft Upper Arm] Pulse Oximetry 98 Oxygen Delivery Me thod OxyMask Oxygen Flow Rate 2 Documenting provider has reviewed patient's vital signs: yes Labs Labs: Laboratory Results - last 24 hr 03/29/22 03/29/22 03/29/22 15:47 15:54 15:54 WBC 10.00 RBC 4.98 Hgb 15.1 Hct 46.2 MCV 93 MCH 30 MCHC 33 RDW Coeff of Andrew 12.6 Plt Count 283 Neut % (Auto) 57.3 Lymph % (Auto) 32.7 [place] % (Auto) 6.8 Eos % (Auto) 2.2 Baso % (Auto) 0.5 Neut # (Auto) 5.73 Lymph # (Auto) 3.27 H [place] # (Auto) 0.70 Eos # (Auto) 0.22 Baso # (Auto) 0.05 INR APTT Sodium 138 Potassium 4.1 Chloride 104 Carbon Dioxide 26 BUN 22 Creatinine 0.5 Estimated Creat Clear 43.63 Estimated GFR 95 Glucose 136 H Calcium 9.5 Total Bilirubin Direct Bilirubin AST ALT Alkaline Phosphatase Total Protein Albumin SARS-CoV-2 (PCR) Negative SARS-CoV-2 03/29/22 03/29/22 03/30/22 15:54 15:54 05:53 WBC 10.17 RBC 4.04 Hgb 12.4 Hct 38.3 MCV 95 MCH 31 MCHC 32 RDW Coeff of Andrew 12.9 Plt Count 224 Neut % (Auto) 72.7 H Lymph % (Auto) 17.2 L [place] % (Auto) 9.7 Eos % (Auto) 0.0 Baso % (Auto) 0.2 Neut # (Auto) 7.40 H Lymph # (Auto) 1.70 [place] # (Auto) 1.00 H Eos # (Auto) 0.00 Baso # (Auto) 0.02 INR 0.98 APTT 29 Sodium Potassium Chloride Carbon Dioxide BUN Creatinine Estimated Creat Clear Estimated GFR Glucose Calcium Total Bilirubin 0.7 Direct Bilirubin 0.2 AST 57 H ALT 31 Alkaline Phosphatase 90 Total Protein 7.5 Albumin 4.5 SARS-CoV-2 (PCR)
[2022-03-30] MEDS: HYDROmorphone 2 MG TABLET PO ×2 (17:56→20:41)
[2022-03-30] MEDS: CEFAZOLIN 1 GM in 0.9 % SODIUM CHLORIDE Mini-bag 100 ML IVPB (18:00)
[2022-03-30] MEDS: ATORVASTATIN 10 MG TABLET 20 MG PO (20:37)
[2022-03-30] MEDS: SENNOSIDES 1 TAB TABLET 2 TAB PO (20:38)
--- NOTE | 2022-03-30 22:19 | PC.NURSE ---
Shift [id number]- Patient is sleepy on and off throughout shift. She rates pain as high as 6/10, PRN pain medication given with relief. Dressings are clean dry and intact. She is tolerating diet without issue. Active ice applied. Lisandra is patent. She declines to get up to chair this evening. Oxygen weaned to 0.5L with saturations in low 90s%.
[2022-03-31] MEDS: HYDROmorphone 2 MG TABLET PO ×5 (02:03→19:54)
[2022-03-31] MEDS: CEFAZOLIN 1 GM in 0.9 % SODIUM CHLORIDE Mini-bag 100 ML IVPB ×2 (02:03→10:53)
[2022-03-31 02:27] VITALS: BP 130/60; PULSE 80; RESP 16; TEMP 36.4; O2SAT 90
--- NOTE | 2022-03-31 06:46 | PC.NURSE ---
Shift note: Pt has been in bed since received from theater. Refused attempt to ambulate her to recliner. This morning at 0620, resume writer attempted to ambulate pt to recliner. Managed to get pt in a standing position with the use of walker and GB but pt was not able to make the first step. Confirmed dizziness while standing. Pt returned to lying position in bed and made comfortable. Pain medication given for pain level 10 per pt.
[2022-03-31 07:00] VITALS: BP 142/62; PULSE 89; RESP 16; TEMP 36.4; O2SAT 95
[2022-03-31 07:08] LABS: Hematocrit 27.8 % (33.0-51.0); Hemoglobin* 9.1 gm/dL (12.0-16.0); Mean Corpuscular HGB Conc 33 gm/dL (32-36); Mean Corpuscular Hemoglobin 31 pg (26-34); Mean Corpuscular Volume 95 fL (80-100); Platelet Count* 190 K/uL (140-440); Red Blood Count 2.93 m/uL (4.00-5.20); White Blood Count* 11.44 K/uL (4.50-11.00)
[2022-03-31 07:12] LABS: Slide Review Reflex No
[2022-03-31 07:14] LABS: Potassium* 4.5 mmol/L (3.6-5.1); Sodium* 134 mmol/L (135-149)
[2022-03-31 07:17] LABS: Blood Urea Nitrogen* 22 mg/dL (7-30); Creatinine* 0.6 mg/dL (0.5-1.5); Est. Creatinine Clearance* 43.63; Estimated Glomerular Filt Rate 91 ml/min
[2022-03-31] MEDS: HYDROmorphone 0.5 mg/0.5 ml inj IVP (08:28)
[2022-03-31] MEDS: SODIUM CHLORIDE 0.9 % (FLUSH) 10 ML SYRINGE 5 ML IVF ×2 (08:31→19:55)
[2022-03-31] MEDS: ACETAMINOPHEN 500 MG TABLET 1000 MG PO ×2 (09:13→19:53)
[2022-03-31] MEDS: timoloL maleate 0.5 % 1 DROP EYE-BOTH (09:14)
[2022-03-31] MEDS: SENNOSIDES 1 TAB TABLET 2 TAB PO ×2 (09:14→19:54)
[2022-03-31] MEDS: RIVAROXABAN 10 MG TABLET PO (09:14)
[2022-03-31] MEDS: ESCITALOPRAM 10 MG TABLET 20 MG PO (09:14)
[2022-03-31] MEDS: MULTIVITAMIN/MINERALS 1 TABLET 1 TAB PO (09:14)
--- NOTE | 2022-03-31 10:43 | P.ORPN_ITS ---
Subjective Subjective Date Seen: 03/31/22 Principal diagnosis: Status postop day 1 Left femur intertro chanteric/subtrochanteric fracture Interval history: Patient reports doing okay, still experiencing pain and somewhat reluctance to stand and walk. No acute events over night. Pain managed with scheduled /PRN medications and ice. History of issues with oxycodone and hydrocodone causing nausea/vomiting. Oral hydromorphone appears to be working well. DVT prophylaxis rivaroxaban, bilateral knee high Mohinder stockings, and SCDs. Reports dizziness and lightheadedness, which is why she is reluctant to stand and walk. She says she has quite an active bladder thus wants to keep the Fry at this time. Denies fevers, chills, aches, N/V, CP, SOB/ELAINE, tachycardia . Ortho Exam Narrative Exam Narrative: -Patient appears comfortable in recliner; no apparent acute distress; daughter present -Alert and oriented times 3 -Operative hip and thigh swollen; soft tissues supple; no obvious erythema. Ecchymosis minimal. Warmth appropriate. Pain to palpation over the proximal mid thigh -Surgical dressings clean, dry, intact; no obvious drainage, no erythematous streaking peripheral to the bandage -Bilateral calves soft and supple; no significant swelling, edema, tenderness, erythema, discoloration, warmth, or palpable cords -2+ DP/PT pulses, intact dermatomes and myotomes distally (5/5 strength). Const Vital Signs, click to edit/add: Vital Signs - 24 hr 03/30/22 13:32 03/30/22 13:37 03/30/22 13:42 Temperature 97.6 F Pulse Rate 78 75 75 Pulse Rate [Left Pulse Oximeter] Respiratory Rate 16 16 16 Blood Pressure 142/67 H 151/70 H 152/65 H Blood Pressure [Left Arm] Pulse Oximetry 97 100 100 Oxygen Delivery Method OxyMask OxyMask OxyMask Oxygen Flow Rate 8 8 4 03/30/22 13:47 03/30/22 13:52 03/30/22 13:57 Temperature Pulse Rate 84 79 79 Pulse Rate [Left Pulse Oximeter] Respiratory Rate 16 16 16 Blood Pressure 160/72 H 149/61 H 149/61 H Blood Pressure [Left Arm] Pulse Oximetry 98 98 97 Oxygen Delivery Method OxyMask OxyMask OxyMask Oxygen Flow Rate 2 2 2 02/18/23 14:02 03/30/22 14:07 03/30/22 14:12 Temperature 97.5 F L Pulse Rate 77 72 78 Pulse Rate [Left Pulse Oximeter] Respiratory Rate 16 16 16 Blood Pressure 149/75 H 145/58 H 137/62 Blood Pressure [Left Arm] Pulse Oximetry 96 96 98 Oxygen Delivery Method OxyMask OxyMask OxyMask Oxygen Flow Rate 2 2 2 03/30/22 14:50 03/30/22 14:30 03/30/22 14:45 Temperature 96.6 F L 97.1 F L 97.1 F L Pulse Rate 81 Pulse Rate [Left Pulse Oximeter] 78 78 Respiratory Rate 16 16 16 Blood Pressure Blood Pressure [Left Arm] 126/90 H 129/48 L 127/54 L Pulse Oximetry 95 96 Oxygen Delivery Method Room Air OxyMask Room Air Room Air Oxygen Flow Rate 03/30/22 15:00 03/30/22 15:15 03/30/22 15:30 Temperature 97.1 F L 97.1 F L Pulse Rate Pulse Rate [Left Pulse Oximeter] 75 78 78 Respiratory Rate 16 18 18 Blood Pressure Blood Pressure [Left Arm] 131/52 L 104/77 104/39 L Pulse Oximetry 92 96 95 Oxygen Delivery Method Room Air Nasal Cannula Nasal Cannula Oxygen Flow Rate 2 1.5 1.5 03/30/22 16:00 03/30/22 16:30 03/30/22 17:30 Temperature Pulse Rate Pulse Rate [Left Pulse Oximeter] 78 81 81 Respiratory Rate 18 16 16 Blood Pressure Blood Pressure [Left Arm] 112/46 L 118/55 L 127/53 L Pulse Oximetry 95 94 95 Oxygen Delivery Method Nasal Cannula Nasal Cannula Nasal Cannula Oxygen Flow Rate 1.5 1.5 1 03/30/22 18:30 03/30/22 19:30 03/30/22 23:00 Temperature 97.8 F 97.6 F Pulse Rate Pulse Rate [Left Pulse Oximeter] 87 86 86 Respiratory Rate 16 16 16 Blood Pressure Blood Pressure [Left Arm] 120/57 L 92/70 124/51 L Pulse Oximetry 97 97 93 Oxygen Delivery Method Nasal Cannula Nasal Cannula Room Air Oxygen Flow Rate 1 0.5 03/31/22 02:27 03/31/22 07:00 03/31/22 07:00 Temperature 97.6 F 97.6 F Pulse Rate Pulse Rate [Left Pulse Oximeter] 80 89 89 Respiratory Rate 16 16 16 Blood Pressure Blood Pressure [Left Arm] 130/60 142/62 H Pulse Oximetry 90 95 Oxygen Delivery Method Room Air Room Air Oxygen Flow Rate Assessment and Plan Assessment and plan (1) Closed fracture of left hip: Problem details: POD 1 Displaced, comminuted, left intertrochanteric femur fracture fixation with IM nail and cable cerclage (03/30/22). Oral hydromorphone for pain Status: Acute (2) Hypertension: Problem details: Restarted normal blood pressure medicines as needed Status: Acute (3) Intolerance of drug: Problem details: Patient has history of intolerance to oxycodone and hydrocodone. Use hydromo rphone for postoperative pain. Alternative would be tramadol. Status: Acute (4) Acute postoperative anemia due to expected blood loss: Problem details: Hgb 9.1, complains of dizziness and lightheadedness she when standing - will continue to follow this Status: Acute Plan - Complete 23 hour perioperative antibiotics. - PT/OT consult for education and assistance. - Social work consult for discharge planning - Would recommend SNF for rehab; patient is very reluctant to this. Her would not be able to take care of her. She would half friend/ family that can stopping throughout the day at her home to help, but it sounds that no one would be available during the night. Thus, SNF is highly recommended. - Prescribed analgesics as needed - oral hydromorphone appears to be working; tramadol would be next step if issues with hydromorphone such as nausea/vomiting - DVT prophylaxis: rivaroxaban, bilateral knee high Mohinder Hose stockings and SCDs - Anticipation is for discharge to SNF once the patient remains medically stable, pain is controlled, and they are safe with mobilization. - Ortho will continue to follow
[2022-03-31 11:00] VITALS: BP 128/59; PULSE 100; RESP 16; TEMP 36.7; O2SAT 96
--- NOTE | 2022-03-31 14:12 | P.IMPN_ITS ---
Progress Note: A&P Assessment and plan (1) Closed fracture of left hip: Problem details: POD 1 Displaced, comminuted, left intertrochanteric femur fracture fixation with IM nail and cable cerclage (03/30/22). Oral hydromorphone for pain Status: Acute (2) Hypertension: Problem details: Restarted normal blood pressure medicines as needed Status: Acute (3) Intolerance of drug: Problem details: Patient has history of intolerance to oxycodone and hydrocodone. Use hydromorphone for postoperative pain. Working well so far. Alternative would be tramadol. Status: Acute (4) Acute postoperative anemia due to expected blood loss: Problem details: Hgb 9.1, complains of dizziness and lightheadedness she when standing - will continue to follow this Due to blood loss from fracture Status: Acute Plan Continue in hospital for rehabilitation and symptom management. Discussed with patient and daughter today about options of going home verses [facility]itent[facility] facility for rehab. Revisit this issue tomorrow. Time Spent With Patient Total time spent: Total time spent today is 40 minutes, 30 minutes in coordination of care discussing ongoing evaluation management of hip fracture rehab and disposition plans Subjective Date Seen: 03/31/22 Interval history: Patient seen in followup of ORIF of left intertrochanteric femur fracture day 1. Pain control is improved. She has been able to tolerate p.o. food and fluid. She is less nauseated with hydromorphone then morphine. Exam Narrative: Exam Narrative: She is alert and appears no distress. Respirations are unlabored. Abdomen is soft without tenderness. Extremities without edema. She moves her ankles well. Const: Vital Signs, click to edit/add: Vital Signs - 24 hr 03/30/22 14:50 03/30/22 14:30 03/30/22 14:45 Temperature 96.6 F L 97.1 F L 97.1 F L Pulse Rate 81 Pulse Rate [Left P ulse Oximeter] 78 78 Respiratory Rate 16 16 16 Blood Pressure [Le ft Arm] 126/90 H 129/48 L 127/54 L Pulse Oximetry 95 96 Oxygen Delivery Me thod Room Air OxyMask Room Air Room Air Oxygen Flow Rate 03/30/22 15:00 03/30/22 15:15 03/30/22 15:30 Temperature 97.1 F L 97.1 F L Pulse Rate Pulse Rate [Left P ulse Oximeter] 75 78 78 Respiratory Rate 16 18 18 Blood Pressure [Le ft Arm] 131/52 L 104/77 104/39 L Pulse Oximetry 92 96 95 Oxygen Delivery Me thod Room Air Nasal Cannula Nasal Cannula Oxygen Flow Rate 2 1.5 1.5 03/30/22 16:00 03/30/22 16:30 03/30/22 17:30 Temperature Pulse Rate Pulse Rate [Left P ulse Oximeter] 78 81 81 Respiratory Rate 18 16 16 Blood Pressure [Le ft Arm] 112/46 L 118/55 L 127/53 L Pulse Oximetry 95 94 95 Oxygen Delivery Me thod Nasal Cannula Nasal Cannula Nasal Cannula Oxygen Flow Rate 1.5 1.5 1 03/30/22 18:30 03/30/22 19:30 03/30/22 23:00 Temperature 97.8 F 97.6 F Pulse Rate Pulse Rate [Left P ulse Oximeter] 87 86 86 Respiratory Rate 16 16 16 Blood Pressure [Le ft Arm] 120/57 L 92/70 124/51 L Pulse Oximetry 97 97 93 Oxygen Delivery Me thod Nasal Cannula Nasal Cannula Room Air Oxygen Flow Rate 1 0.5 03/31/22 02:27 03/31/22 07:00 03/31/22 07:00 Temperature 97.6 F 97.6 F Pulse Rate Pulse Rate [Left P ulse Oximeter] 80 89 89 Respiratory Rate 16 16 16 Blood Pressure [Le ft Arm] 130/60 142/62 H Pulse Oximetry 90 95 Oxygen Delivery Me thod Room Air Room Air Oxygen Flow Rate 03/31/22 11:00 Temperature 98.0 F Pulse Rate Pulse Rate [Left P ulse Oximeter] 100 Respiratory Rate 16 Blood Pressure [Le ft Arm] 128/59 L Pulse Oximetry 96 Oxygen Delivery Me thod Room Air Oxygen Flow Rate 0.5 Documenting provider has reviewed patient's vital signs: yes Labs Labs: Laboratory Results - last 24 hr 03/31/22 03/31/22 05:48 05:48 WBC 11.44 H RBC 2.93 L Hgb 9.1 L Hct 27.8 L MCV 95 MCH 31 MCHC 33 Plt Count 190 Sodium 134 L Potassium 4.5 BUN 22 Creatinine 0.6 Estimated Creat Clear 43.63 Estimated GFR 91
[2022-03-31 15:00] VITALS: BP 136/49; PULSE 96; RESP 16; TEMP 37.3; O2SAT 95
--- NOTE | 2022-03-31 18:18 | PC.NURSE ---
End of shift note: Patient resting comfortably throughout shift. Pt. rates her pain 07/20, PRN pain medication given with relief see eMAR.? Dressing to left hip C/D/I. Pt. tolerating reg. diet.?Active ice to op site.? Fry removed at 1100 intact. Sating 95% on RA, encouraged to use IS. Up to chair for meals, tolerated working w/PT/OT. Afebrile this shift. IV SL.
[2022-03-31 19:00] VITALS: BP 148/64; PULSE 84; RESP 16; TEMP 37; O2SAT 96
[2022-03-31] MEDS: ATORVASTATIN 10 MG TABLET 20 MG PO (19:54)
[2022-03-31 23:00] VITALS: BP 169/73; PULSE 86; RESP 18; TEMP 36.6; O2SAT 97
[2022-04-01] MEDS: HYDROmorphone 2 MG TABLET PO ×4 (03:29→20:45)
[2022-04-01 03:33] VITALS: BP 154/69; PULSE 90; RESP 18; TEMP 36.7; O2SAT 96
--- NOTE | 2022-04-01 06:26 | PC.NURSE ---
Addendum entered by Alondra Slaughter RN 04/01/22 06:56: Freight Brakeman talked to pt about where she feels is appropriate for her to d/c to. Patient stated she thinks that rehab would be most appropriate but her family wants her to go home. Freight Brakeman encouraged her to speak up to family and tell them her thoughts. Original Note: Status [id number] Alert and oriented. Pleasant and cooperative. PRN PO dilaudid given x2 for left hip pain. Dressings to left hip CDI. CMS intact. BP elevated. Afebrile. Up with assist of 1 and walker/belt to commode. Needs encouragement with activity. Using IS with encouragement. Pt observed resting between cares.
[2022-04-01 07:50] VITALS: BP 147/61; PULSE 98; RESP 16; TEMP 36.9; O2SAT 96
--- NOTE | 2022-04-01 08:14 | P.ORPN_ITS ---
Subjective Subjective Date Seen: 04/01/22 Principal diagnosis: Status postop day 2 Left femur intertro chanteric/subtrochanteric fracture Interval history: Patient reports doing okay. Her pain is quite severe, complaining of 10/10 pain with motion of the left lower extremity. This makes mobility difficult. No acute events over night. Pain managed with scheduled /PRN medications and ice. Hydromorphone appears to be working for her, not causing nausea/vomiting. DVT prophylaxis rivaroxaban, bilateral knee high Mohinder stockings, and SCDs. Reports continued lightheadedness/dizziness when going to a standing position. Denies fevers, chills, aches, N/V, CP, SOB/ELAINE, or tachycardia. She still not sure her decision on SNF verses going home. She knows it is best to go to SNF at discharge from hospital for rehab, but her and rest of the family feel t hey can help her at home. Ortho Exam Narrative Exam Narrative: -Patient appears comfortable in bed, eating breakfast; no apparent acute distress. She appears more somnolent, tired this morning. She is apparently in a conundrum about SNF versus home at discharge. -Alert and oriented times 3 -Operative hip swollen; soft tissues supple; no obvious erythema. Warmth appropriate -Surgical dressings clean, dry, intact; no obvious drainage, no erythematous streaking peripheral to the bandage -Bilateral calves soft and supple; no significant swelling, edema, tenderness, erythema, discoloration, warmth, or palpable cords -2+ DP/PT pulses, intact dermatomes and myotomes distally (5/5 strength) Const Vital Signs, click to edit/add: Vital Signs - 24 hr 03/31/22 11:00 03/31/22 15:00 03/31/22 15:00 Temperature 98.0 F 99.1 F Pulse Rate [Left Pulse Oximeter] 100 96 96 Respiratory Rate 16 16 16 Blood Pressure [Left Arm] 128/59 L 136/49 L Pulse Oximetry 96 95 Oxygen Delivery Method Room Air Room Air Oxygen Flow Rate 0.5 03/31/22 19:00 03/31/22 23:00 03/31/22 23:00 Temperature 98.6 F 98 F Pulse Rate [Left Pulse Oximeter] 84 86 86 Respiratory Rate 16 18 18 Blood Pressure [Left Arm] 148/64 H 169/73 H Pulse Oximetry 96 97 Oxygen Delivery Method Room Air Room Air Oxygen Flow Rate 04/01/22 03:33 04/01/22 07:50 04/01/22 07:50 Temperature 98.1 F 98.5 F Pulse Rate [Left Pulse Oximeter] 90 98 98 Respiratory Rate 18 16 Blood Pressure [Left Arm] 154/69 H 147/61 H Pulse Oximetry 96 96 Oxygen Delivery Method Room Air Room Air Oxygen Flow Rate Assessment and Plan Assessment and plan (1) Closed fracture of left hip: Problem details: POD 2 Displaced, comminuted, left intertrochanteric femur fracture fixation with IM nail and cable cerclage (03/30/22). Oral hydromorphone for pain Status: Acute (2) Hypertension: Problem details: Restarted normal blood pressure medicines as needed Status: Acute (3) Intolerance of drug: Problem details: Patient has history of intolerance to oxycodone and hydrocodone. Use hydromorphone for postoperative pain. Working well so far. Alternative would be tramadol. Status: Acute (4) Acute postoperative anemia due to expected blood loss: Problem details: Hgb 9.1, complains of dizziness and lightheadedness when standing - will continue to follow this Due to blood loss from fracture Status: Acute Plan - Complete 23 hour perioperative antibiotics. - PT/OT consult for education and assistance. - Social work consult for discharge planning - I am in strong opinion that patient go to SNF for rehab - Prescribed analgesics as needed - DVT prophylaxis: Rivaroxaban, bilateral knee high Mohinder Hose stockings and SCDs - Anticipation is for discharge to SNF once pain is controlled, and they are reasonably safe with mobilization.
[2022-04-01] MEDS: MULTIVITAMIN/MINERALS 1 TABLET 1 TAB PO (08:41)
[2022-04-01] MEDS: RIVAROXABAN 10 MG TABLET PO (08:41)
[2022-04-01] MEDS: LOSARTAN POTASSIUM 50 MG TABLET PO (08:41)
[2022-04-01] MEDS: ACETAMINOPHEN 500 MG TABLET 1000 MG PO ×2 (08:41→20:45)
[2022-04-01] MEDS: timoloL maleate 0.5 % 1 DROP EYE-BOTH (08:42)
[2022-04-01] MEDS: SENNOSIDES 1 TAB TABLET 2 TAB PO ×2 (08:42→20:44)
[2022-04-01] MEDS: ESCITALOPRAM 10 MG TABLET 20 MG PO (08:42)
[2022-04-01] MEDS: SODIUM CHLORIDE 0.9 % (FLUSH) 10 ML SYRINGE 5 ML IVF ×2 (08:42→20:46)
[2022-04-01 09:20] LABS: Hemoglobin* 9.1 gm/dL (12.0-16.0)
--- NOTE | 2022-04-01 10:26 | P.IMPN_ITS ---
Progress Note: A&P Assessment and plan (1) Closed fracture of left hip: Problem details: POD 2 Displaced, comminuted, left intertrochanteric femur fracture fixation with IM nail and cable cerclage (03/30/22). Oral hydromorphone for pain Status: Acute (2) Hypertension: Problem details: Restarted normal blood pressure medicines as tolerated Status: Acute (3) Intolerance of drug: Problem details: Patient has history of intolerance to oxycodone and hydrocodone. Use hydromorphone for postoperative pain. Working well so far. Alternative would be tramadol. Status: Acute (4) Acute postoperative anemia due to expected blood loss: Problem details: Hgb 9.1, stable. complains of dizziness and lightheadedness when standing - will continue to follow this Due to blood loss from fracture Status: Acute Plan Continue hospitalization for management of pain and rehabilitation. Patient is discouraged by how slow her recovery is but she appears to be recovering approximately as would be expected. I am recommending group home facility. Continue conversation with patient and family regarding this. Time Spent With Patient Total time spent: Total time spent today is 30 minutes, 20 minutes in coordination care discussing with patient and family and other providers disposition Subjective Date Seen: 04/01/22 Interval history: Patient reports doing okay. Her pain control at rest is adequate but with transfers she has severe pain. This makes mobility difficult. No acute events over night. Pain managed with scheduled /PRN medications and ice. Hydromorphone appears to be working for her. She has mild nausea but much better than previous experience with opioids. DVT prophylaxis rivaroxaban, bilateral knee high Mohinder stockings, and SCDs. Reports continued lightheadedness/dizziness when going to a standing position. Denies fevers, chills, aches, N/V, CP, SOB/ELAINE, or tachycardia. She still not sure her decision on SNF verses going home. She knows it is best to go to SNF at discharge from hospital for rehab, but her and rest of the family feel they can help her at home. She took assist of 2 to transfer today. Exam Narrative: Exam Narrative: She is tired appearing. She is oriented to her circumstances. She appears discouraged. Respirations are clear to auscultation. Cardiovascular: S1, S2, regular rate and rhythm. Abdomen: Bowel sounds are active. Abdomen is soft without tenderness or mass. Lower extremities without edema. She has good strength and sensation in both feet and ankles. Const: Vital Signs, click to edit/add: Vital Signs - 24 hr 03/31/22 11:00 03/31/22 15:00 03/31/22 15:00 Temperature 98.0 F 99.1 F Pulse Rate [Left P ulse Oximeter] 100 96 96 Respiratory Rate 16 16 16 Blood Pressure [Le ft Arm] 128/59 L 136/49 L Pulse Oximetry 96 95 Oxygen Delivery Me thod Room Air Room Air Oxygen Flow Rate 0.5 03/31/22 19:00 03/31/22 23:00 03/31/22 23:00 Temperature 98.6 F 98 F Pulse Rate [Left P ulse Oximeter] 84 86 86 Respiratory Rate 16 18 18 Blood Pressure [Le ft Arm] 148/64 H 169/73 H Pulse Oximetry 96 97 Oxygen Delivery Me thod Room Air Room Air Oxygen Flow Rate 04/01/22 03:33 04/01/22 07:50 04/01/22 07:50 Temperature 98.1 F 98.5 F Pulse Rate [Left P ulse Oximeter] 90 98 98 Respiratory Rate 18 16 Blood Pressure [Le ft Arm] 154/69 H 147/61 H Pulse Oximetry 96 96 Oxygen Delivery Me thod Room Air Room Air Oxygen Flow Rate Labs Labs: Laboratory Results - last 24 hr 04/01/22 09:09 Hgb 9.1 L
[2022-04-01 12:00] VITALS: BP 125/43; PULSE 93; RESP 18; TEMP 36.8; O2SAT 97
--- NOTE | 2022-04-01 13:58 | PC.SOCIAL ---
Addendum entered by Didi Mcghee, [facility] 04/01/22 14:44: Call received from [facility] ([place]) who states that [facility] requires a workman's compensation claim number prior to admitting patient. [facility] has already spoken with CindyNicoleleonard who submitted claim just before call and anticipate number to be received by end of day or early tomorrow morning, with claim number to be provided to [facility] at that time. If claim number receipt is delayed, admission to [facility] will need to be delayed. Original Note: Discharge Planning: SW met with pt, dtr, and spouse to discuss d/c planning. Pt resides at home in [place] with spouse. Pt and family understand provider recommendations for short term rehab and prefer [place] facilities. Both [facility] and [facility] have availability and would accept pt. Pt and family choose [facility] for short-term rehab. [facility] van will pickling solution maker pt at 11:30 a.m. tomorrow 04/02/22. PAS completed: [id number]. Pt and family aware of plan. Discharge summary to be faxed to [facility] tomorrow at [phone].
[2022-04-01 15:08] VITALS: BP 137/57; PULSE 89; RESP 16; TEMP 36.4; O2SAT 94
--- NOTE | 2022-04-01 16:28 | PC.NURSE ---
Pt calm and cooperative during shift. Pt needs encouragement with activity. Pt pivot transfer with assist of 1. Pt has had pain ranging from 0-5 through out shift managed by PRN medications see EMAR. Pt's incision site dry and intact. Plan is to discharge Pt to SNF on 04/02/22.
[2022-04-01 19:00] VITALS: BP 146/60; PULSE 96; RESP 18; TEMP 36.9; O2SAT 95
[2022-04-01] MEDS: ATORVASTATIN 10 MG TABLET 20 MG PO (20:46)
[2022-04-01 23:00] VITALS: BP 152/67; PULSE 92; PULSE 96; PULSE 98; RESP 18; TEMP 36.4; O2SAT 94
[2022-04-02 03:00] VITALS: BP 160/72; PULSE 89; RESP 18; TEMP 36.4; O2SAT 95
[2022-04-02] MEDS: HYDROmorphone 2 MG TABLET PO ×3 (03:09→11:25)
[2022-04-02 07:00] VITALS: BP 149/60; PULSE 86; RESP 18; TEMP 36.5; O2SAT 96
--- NOTE | 2022-04-02 07:11 | PC.NURSE ---
VSS on Ra. Patient is alert and oriented x3, uses call light appropriately. Pain managed with Dilaudid x1. Requires assist of one with transfers using walker. Pt appears stable, call light within reach.
--- NOTE | 2022-04-02 08:03 | PM.DS1 ---
DS: Providers Provider Date Seen: 04/02/22 Date of admission: 03/29/22 17:48 Primary care physician: Julianne Ross DO Admitting Clinician: Rosalino Winston MD Attending Physician on discharge: Rosalino Winston MD Date of Discharge: 04/02/22 DS: Diagnosis Discharge Diagnosis (1) Closed fracture of left hip: Status: Acute Problem details: POD 2 Displaced, comminuted, left intertrochanteric femur fracture fixation with IM nail and cable cerclage (03/30/22). 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 Use hydromorphone for postoperative pain. She is tolerating hydromorphone fairly well but still has some nausea. (4) Acute postoperative anemia due to expected blood loss: Status: Acute Problem details: Hemoglobin dropped from 15.1 to 9.1. This reflex blood loss from her fracture. Stable hemoglobin now at 9.1. DS: Summary Hospital Course Hospital Course: Lynette Webster is a 81 year old female admitted to the hospital after a fall and hip injury at work.? 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 She was sitting in her chair.? As she stood to get up she thinks her foot might have caught the chair as she fell right down.? She wonders if her hip broke before she fell.? She immediately had left hip pain and was unable to move.? Subsequently found to have a displaced intertrochanteric hip fracture.? She reports no other injuries.? No recent illness.? She has otherwise been feeling fine. She has had no problems in the past with anesthesia, bleeding or clotting.? She does note that she is very slow to come out of anesthesia and thinks she might need a lower dose of sedation.? She had elective knee replacement in October 2018.? This was uncomplicated until after she was discharged from the hospital she had intractable nausea and vomiting.? This was thought possibly due to oxycodone and/or hydrocodone used for postoperative pain.? She was treated with tramadol, Celebrex, Zofran and was able to manage on this at home. She underwent ORIF of her left intertrochanteric hip fracture without complication. Postoperatively she has had some issues of pain control and some issues with nausea from pain medicine. She is making slow progress with therapy. From her fracture she had acute blood loss anemia with a hemoglobin at 15.1 on admission going to 9.1 and stabilizing there. Status at Discharge Functional status at discharge: uses cane/walker Overall status at discharge: patient is progressing back to baseline Time Spent with Patient Time attestation: Total time spent providing and/or coordinating discharge services: Time spent: Greater than 30 minutes Exam Narrative: Exam Narrative: She is alert and appears tired. Breathing is unlabored. Abdomen is soft without tenderness. Hip is currently without bruising or erythema. She has intact pulses and sensation in her lower extremities. She moves her ankles well. No edema Const: Vital Signs, click to edit/add: Vital Signs - 24 hr 04/01/22 12:00 04/01/22 15:08 04/01/22 19:00 Temperature 98.3 F 97.6 F 98.5 F Pulse Rate [Left D orsalis Pedis] 93 89 96 Pulse Rate [Left P ulse Oximeter] Respiratory Rate 18 16 18 Blood Pressure [Le ft Arm] 125/43 L 137/57 L 146/60 H Pulse Oximetry 97 94 95 Oxygen Delivery Me thod Room Air Room Air Room Air 04/01/22 23:00 04/01/22 23:00 04/02/22 03:00 Temperature 97.5 F L 97.6 F Pulse Rate [Left D orsalis Pedis] 96 92 Pulse Rate [Left P ulse Oximeter] 98 89 Respiratory Rate 18 18 18 Blood Pressure [Le ft Arm] 152/67 H 160/72 H Pulse Oximetry 94 95 Oxygen Delivery Me thod Room Air Room Air 04/02/22 07:00 Temperature 97.7 F Pulse Rate [Left D orsalis Pedis] 86 Pulse Rate [Left P ulse Oximeter] 86 Respiratory Rate 18 Blood Pressure [Le ft Arm] 149/60 H Pulse Oximetry 96 Oxygen Delivery Me thod Room Air Documenting provider has reviewed patient's vital signs: yes DS: Data Data Completed and Pending Labs on day of discharge: Labs from last 24 hours 04/01/22 09:09 Hgb 9.1 L Discharge Plan Discharge Disposition: [facility] Date of Admission: 03/29/22 17:48 Attending Provider on Discharge: Rosalino Winston Primary Care Provider: Julianne Ross Condition: Stable Anticipated Discharge Date/Time: 04/02/22 10:00 Discharge Medications: New ondansetron 4 mg tablet,disintegrating 4 mg PO Q6H Qty: 20 0RF hydromorphone 2 mg tablet 2 mg PO Q4H PRN (Reason: pain) Qty: 30 0RF sennosides [Senna Lax] 8.6 mg tablet 17.2 mg PO BID Qty: 60 0RF rivaroxaban 10 mg tablet 10 mg PO DAILY Qty: 30 0RF Rx Instructions: for 35 days acetaminophen 500 mg capsule 1,000 mg PO Q6H PRNQty: 90 0RF Continued losartan 50 mg tablet 50 mg PO HS Label Comments: TAKE ONE TABLET BY MOUTH ONE TIME DAILY atorvastatin 20 mg tablet 20 mg PO HS Label Comments: TAKE ONE TABLET BY MOUTH ONE TIME DAILY escitalopram oxalate 20 mg tablet 20 mg PO DAILY Label Comments: Take 1 Tablet (20 mg) by mouth every morning. timolol maleate 0.5 % drops 1 drp ophthalmic (eye) DAILY Label Comments: INSTILL ONE DROP INTO BOTH EYES EVERY MORNING multivitamin [Daily Multi-Vitamin] Tablet 1 tab PO DAILY cholecalciferol (vitamin D3) 50 mcg (2,000 unit) tablet 100 mcg PO HS Held aspirin 81 mg tablet,delayed release (DR/EC) 81 mg PO HS Hold Instructions: Resume on 05/02/22. start aspirin after last dose of rivaroxaban Discontinued acetaminophen 500 mg tablet 1,000 mg PO BID Discharge Orders: Discharge Order (Routine); Ordered 04/02/22 Ordered By: Rosalino Winston Activity Level: Activity as Tolerated, Weight Bearing as Tolerated and Use Walker Activity Detail: Wound: ?Do not remove original dressing; we will remove this at first postop visit in 1 week. Only remove dressings if integrity in question. ?No immersing wound in water; showering okay; light scrub with your hand and body soap, rinse, dab dry ?Sutures are under the skin, will dissolve; allow surgical glue to come off naturally; do not scrub the wound or apply ointments/lotions ?Call our office with any redness that streaks, excessive drainage from the wound, or wound gapping. Ice/Elevate: ?Ice as needed for swelling and discomfort (cryocuff or ice pack); elevate frequently above the heart INNA socks: ?Wear for 1 month, remove for 1 hour 3 times per day ?These are frustrating to take on/off, but are important for blood clot prevention for 1 month after surgery Blood Clot Prevention (DVT): ?Medication: Rivaroxaban total one month of protection. Driving: ?Do not drive while taking narcotic pain medication ?Anticipate 4-6 weeks no driving if operative leg is driving leg Dental: ?No elective dental work for 6 months post-op. If there is an urgent/emergent dental need, contact our office for an antibiotic prescription. Smoking/Alcohol: ?Do not smoke; do no drink alcohol especially when taking postoperative oral narcotic medication Seek Care from you Primary Care Provider if you experience the following issues in the postoperative phase and beyond: ?Bacterial infections such as: pneumonia, bacterial skin infection (cellulitis), UTI, high fever, chills unrelated to the operative body part - call your primary care physician urgently for treatment in hopes to protect your health and the metal implant. Referrals: ?PT, OT per patient preference - evaluate treat total hip arthroplasty protocol (gait training, ROM, ADLs) Follow up: ?Ortho surgeon follow-up in 6 weeks; repeat radiographs AP pelvis, cross-table lateral operative hip ?PA-C visit in 1 week (or once discharged for SNF) *If there are any acute concerns regarding your surgery, please call our orthopedic clinic ([phone]) Discharge Diet: Regular Follow Up Appointments: Julianne Ross DO [Primary Care Provider] - Admit to: SNF Discharge Potential: Good Length of Stay: <30 days Can use facility standing orders?: Yes Code Status: Full Code TEDs: Bilateral Knee Rehab Potential: Good Therapy: Physical Therapy and Occupational Therapy Therapy Orders: Evaluate and Treat, Gait Training and ADL Oxygen: No Urinary Catheter: No Orders are good >30 days: Yes
[2022-04-02] MEDS: ACETAMINOPHEN 500 MG TABLET 1000 MG PO (08:40)
[2022-04-02] MEDS: ESCITALOPRAM 10 MG TABLET 20 MG PO (08:42)
[2022-04-02] MEDS: SENNOSIDES 1 TAB TABLET 2 TAB PO (08:43)
[2022-04-02] MEDS: MULTIVITAMIN/MINERALS 1 TABLET 1 TAB PO (08:44)
[2022-04-02] MEDS: LOSARTAN POTASSIUM 50 MG TABLET PO (08:44)
[2022-04-02] MEDS: RIVAROXABAN 10 MG TABLET PO (08:45)
[2022-04-02] MEDS: timoloL maleate 0.5 % 1 DROP EYE-BOTH (08:45)
[2022-04-02] MEDS: SODIUM CHLORIDE 0.9 % (FLUSH) 10 ML SYRINGE 5 ML IVF (08:46)
--- NOTE | 2022-04-02 09:28 | P.ORPN_ITS ---
Subjective Subjective Date Seen: 04/02/22 Principal diagnosis: Status postop day 3 Left femur intertro chanteric/subtrochanteric fracture Interval history: Patient reports doing okay this morning. Very reluctant to use her left leg due to pain. This also makes sleep difficult. Denies any give outs of the left lower extremity. No acute events over night. Pain managed with scheduled /PRN medications and ice. Hydromorphone for pain, which is causing some nausea. Nothing in comparison to oxycodone or hydrocodone. DVT prophylaxis rivaroxaban, bilateral knee high Mohinder stockings, and SCDs. Denies fevers, chills, aches, N/V, CP, SOB/ELAINE, tachycardia. She complains of lightheadedness when standing. Ortho Exam Narrative Exam Narrative: -Patient appears comfortable in recliner; no apparent acute distress. She appears sleepy. Having breakfast. -Alert and oriented times 3 -Operative hip swollen; soft tissues supple; no obvious erythema. Ecchymosis minimal. Warmth appropriate -Surgical dressing clean, dry, intact; no obvious drainage, no erythematous streaking peripheral to the bandage -Bilateral calves soft and supple; no significant swelling, edema, tenderness, erythema, discoloration, warmth, or palpable cords -2+ DP/PT pulses, intact dermatomes and myotomes distally (5/5 strength). Const Vital Signs, click to edit/add: Vital Signs - 24 hr 04/01/22 12:00 04/01/22 15:08 04/01/22 19:00 Temperature 98.3 F 97.6 F 98.5 F Pulse Rate [Left Dorsalis Pedis] 93 89 96 Pulse Rate [Left Pulse Oximeter] Respiratory Rate 18 16 18 Blood Pressure [Left Arm] 125/43 L 137/57 L 146/60 H Pulse Oximetry 97 94 95 Oxygen Delivery Method Room Air Room Air Room Air 04/01/22 23:00 04/01/22 23:00 04/02/22 03:00 Temperature 97.5 F L 97.6 F Pulse Rate [Left Dorsalis Pedis] 96 92 Pulse Rate [Left Pulse Oximeter] 98 89 Respiratory Rate 18 18 18 Blood Pressure [Left Arm] 152/67 H 160/72 H Pulse Oximetry 94 95 Oxygen Delivery Method Room Air Room Air 04/02/22 07:00 04/02/22 07:00 Temperature 97.7 F Pulse Rate [Left Dorsalis Pedis] 86 86 Pulse Rate [Left Pulse Oximeter] 86 86 Respiratory Rate 18 18 Blood Pressure [Left Arm] 149/60 H Pulse Oximetry 96 Oxygen Delivery Method Room Air Assessment and Plan Assessment and plan (1) Closed fracture of left hip: Problem details: POD 3 Displaced, comminuted, left intertrochanteric femur fracture fixation with IM nail and cable cerclage (03/30/22) Status: Acute (2) Hypertension: Problem details: Restarted normal blood pressure medicines as tolerated Status: Acute (3) Intolerance of drug: Problem details: Patient has history of intolerance to oxycodone and hydrocodone. Use hydromorphone for postoperative pain. She is tolerating hydromorphone fairly well but still has some nausea. Status: Acute (4) Acute postoperative anemia due to expected blood loss: Problem details: Hemoglobin dropped from 15.1 to 9.1. This reflex blood loss from her fracture. Stable hemoglobin now at 9.1. Status: Acute Plan - Complete 23 hour perioperative antibiotics. - PT/OT consult for education and assistance. - Prescribed analgesics as needed - DVT prophylaxis: Rivaroxaban, bilateral knee high Mohinder Hose stockings and SCDs - Anticipation is for discharge to [facility] today, 04/02/2022 if the patient remains medically stable, pain is controlled, and they are reasonably safe with mobilization.
[2022-04-02 09:30] LABS: Hemoglobin* 8.7 gm/dL (12.0-16.0)
[2022-04-02 11:00] VITALS: BP 148/58; PULSE 87; RESP 18; TEMP 36.6; O2SAT 95
--- NOTE | 2022-04-02 13:02 | PC.NURSE ---
Pt alert and oriented x3. Pt reports pain in left hip 9/10, pain managed with PRN medications. Pt left hip dressings are CDI. Pt is up A1 with gait belt and walker. Pt is tolerating a regular diet. Pt was given education packet for [facility]. Pt left via [facility] to [facility] at 1130. IV was taken out at 1100 catheter intact.
== END 2022-04-02 11:30 | DRG 481 ==
LOC: ED 16:39 → MEDSURG 17:26
PROVIDERS: Orthopaedic Surgery Sports Medicine; Admitting Provider Family Medicine; Emergency Provider Emergency Medicine; PCP Family Medicine; Visit Provider Family Medicine
PROC: 0QS706Z Reposition Left Upper Femur with Intramedullary Internal Fixation Device, Open Approach (ICD-10-PCS; CPT 27245; principal; 2022-03-30 10:45)
DX: S72.142A Displaced intertrochanteric fracture of left femur, initial encounter for closed fracture (principal); D62 Acute posthemorrhagic anemia; I51.81 Takotsubo syndrome; R42 Dizziness and giddiness; G89.18 Other acute postprocedural pain; F41.9 Anxiety disorder, unspecified; W01.0XXA Fall on same level from slipping, tripping and stumbling without subsequent striking against object, initial encounter; Y92.59 Other trade areas as the place of occurrence of the external cause; Y99.0 Civilian activity done for income or pay; E11.9 Type 2 diabetes mellitus without complications; I10 Essential (primary) hypertension; M85.80 Other specified disorders of bone density and structure, unspecified site; Z96.651 Presence of right artificial knee joint; H40.9 Unspecified glaucoma; J30.9 Allergic rhinitis, unspecified; M48.00 Spinal stenosis, site unspecified; E78.5 Hyperlipidemia, unspecified
CPT/HCPCS: 01210; 36415; 71045; 73502; 73552; 76000; 76942; 80048; 80076; 82565; 84132; 84295; 84520; 85018; 85025; 85027; 85610; 85730; 87635; 93005; 97110; 97161; 97165; 97530; 97535; 99100; 99140; 99284; 99285; A9153; A9270; C1713; J0690; J0780; J1100; J1170; J2250; J2270; J2370; J2405; J2704; J2795; J3010; J3490; J7120

== ENCOUNTER 2023-10-28 13:10 | Outpatient (CLI) | payer OTHER, SELFPAY ==
[2023-10-28 13:29] LABS: Hemoglobin* 12.9 gm/dL (12.0-16.0)
== END 2023-10-28 13:11 | disposition home or self-care (01) ==
LOC: LAB 13:11
PROVIDERS: PCP Family Medicine; Visit Provider Orthopaedic Surgery
DX: I10 Essential (primary) hypertension (principal)
CPT/HCPCS: 36415; 85018